=== PATIENT | male | born 1995 | race African-American/Black ===

== ENCOUNTER 2017-09-20 16:39 | Emergency (ER) | payer OTHER ==
[2017-09-20] MEDS ORDERED: OXYCODONE-ACETAMINOPHEN 5-325 MG TABLET PO ONE (16:53)
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
[2017-09-20] MEDS ORDERED: HYDROCODONE/ACETAMINOPHEN 5-325 MG 6 TAB/DSPK PO PRN (18:05)
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
[2017-09-20 18:52] VITALS: BP 110/60
== END 2017-09-20 18:30 | disposition home or self-care (01) ==
LOC: ER 16:39
DX: M54.2 Cervicalgia (principal); V87.7XXA Person injured in collision between other specified motor vehicles (traffic), initial encounter
CPT/HCPCS: 72110; 72125; 99284

== ENCOUNTER 2018-09-02 01:43 | Emergency (ER) | payer OTHER ==
[2018-09-02] MEDS ORDERED: NORMAL SALINE 1000 ML 1,000 ML IV ONE (02:13)
[2018-09-02] MEDS ORDERED: ONDANSETRON HCL INJ/PF 4 MG/2 ML SDV IV ONE (02:21)
--- NOTE | 2018-09-02 02:22 | ER Document Report ---
ED GI/ - General Chief Complaint: Nausea/Vomiting Stated Complaint: VOMITING Time Seen by Provider: 09/02/18 02:08 Notes: Patient is a 23-year-old male that comes emergency department for chief complaint of vomiting and upper abdominal pain. He also states that he vomited blood. Patient states that he initially vomited last night after eating cookout , he states he has not felt good since then, he states that during a retching episode earlier he started vomiting blood, vomited less than a cup of blood but more than tablespoon. He denies fever or chills, he reports a normal bowel movement within the past 24 hours. He denies any daily medications, denies any surgeries, smokes occasionally, denies any regular alcohol, denies any recreational drugs. TRAVEL OUTSIDE OF THE [place] IN LAST 30 DAYS: No - Related Data Allergies/Adverse Reactions: No Known Allergies Allergy (Verified 10/15/15 16:21) Past Medical History - General Information source: Patient - Social History Smoking Status: Current Some Day Smoker Frequency of alcohol use: None Drug Abuse: Marijuana Lives with: Spouse/Significant other Family History: None Renal/ Medical History: Denies: Hx Peritoneal Dialysis Surgical Hx: Negative - Immunizations Hx Diphtheria, Pertussis, Tetanus Vaccination: Yes Review of Systems - Review of Systems Constitutional: No symptoms reported EENT: No symptoms reported Cardiovascular: No symptoms reported Respiratory: No symptoms reported Gastrointestinal: See HPI Genitourinary: No symptoms reported Male Genitourinary: No symptoms reported Musculoskeletal: No symptoms reported Skin: No symptoms reported Hematologic/Lymphatic: No symptoms reported Neurological/Psychological: No symptoms reported Physical Exam - Vital signs Vitals: Temp Pulse Resp BP Pulse Ox 98.1 F 100 18 109/69 100 09/02/18 01:48 09/02/18 01:48 09/02/18 01:48 09/02/18 01:48 09/02/18 01:48 - Notes Notes: GENERAL: Alert, interacts well. No acute distress. HEAD: Normocephalic, atraumatic. EYES: Pupils equal, round, and reactive to light. Extraocular movements intact. ENT: Oral mucosa moist, tongue midline. NECK: Full range of motion. Supple. Trachea midline. LUNGS: Clear to auscultation bilaterally, no wheezes, rales, or rhonchi. No respiratory distress. HEART: Regular rate and rhythm. No murmur ABDOMEN: Generalized upper abdominal tenderness, no guarding. Non-distended. Bowel sounds present in all 4 quadrants. GENITOURINARY: Deferred EXTREMITIES: Moves all 4 extremities spontaneously. No edema, normal radial and dorsalis pedis pulses bilaterally. No cyanosis. BACK: no cervical, thoracic, lumbar midline tenderness. No saddle anesthesia, normal distal neurovascular exam. NEUROLOGICAL: Alert and oriented x3. Normal speech. [cranial nerves II through XII grossly intact]. PSYCH: Normal affect, normal mood. SKIN: Warm, dry, normal turgor. No rashes or lesions noted. Course - Re-evaluation Re-evalutation: Patient has generalized upper abdominal tenderness. No guarding. He is well- appearing. He is not tachycardic, hypotensive, or febrile. There is no blood in the hypopharynx. Because of reported retching x-rays performed does not show free air/ perforation evidence. It is unremarkable. CBC, chemistry, lipase unremarkable. On reevaluation after IV fluids and Zofran patient is much improved. Given Carafate and Pepcid, he tolerated this and felt much improved afterwards. Suspected gastritis component. Discussed recommendations for this , discussed treatment, follow-up, and return precautions in detail. Patient states satisfaction and agreement with plan. - Vital Signs Vital signs: Temp Pulse Resp BP Pulse Ox 97.8 F 91 18 105/59 L 100 09/02/18 04:14 09/02/18 04:14 09/02/18 04:14 09/02/18 04:14 09/02/18 04:14 - Laboratory Result Diagrams: 09/02/18 02:48 09/02/18 02:48 Laboratory results interpreted by me: 09/02/18 09/02/18 02:48 02:48 RBC 5.91 H Seg Neutrophils % 85.8 H Lymphocytes % 10.5 L Monocytes % 2.7 L Total Protein 8.7 H Lipase 19.6 L Discharge - Discharge Clinical Impression: Upper abdominal pain Hematemesis Qualifiers: Nausea presence: with nausea Qualified Code(s): K92.0 - Hematemesis Vomiting Qualifiers: Vomiting type: unspecified Vomiting Intractability: non-intractable Nausea presence: with nausea Qualified Code(s): R11.2 - Nausea with vomiting, unspecified Condition: Stable Disposition: HOME, SELF-CARE Additional Instructions: Your chest/abdominal x-ray and laboratory evaluations are reassuring. Continue treatment for gastritis at home, take medications as prescribed. Take Phenergan for nausea, take Carafate and Pepcid as prescribed to help treat this , you can take additional Rolaids, Tums, Maalox, etc. if needed. You can take Tylenol for pain. Avoid NSAIDs, alcohol, smoking, caffeine, spicy food. Start with clear fluids, progress to bland diet. Follow-up with primary care for additional evaluation and treatment including possible H. pylori testing. Return if you worsen including uncontrolled vomiting, vomiting blood, black stools, severe pain, fever for 100.4 or greater , or any other concerning or worsening symptoms. Prescriptions: Famotidine [Pepcid 20 mg Tablet] 20 mg PO BID #20 tablet Promethazine HCl [Phenergan 25 mg Tablet] 25 mg PO Q6H PRN #20 tablet PRN Reason: Sucralfate [Carafate 1 gm Tablet] 1 gm PO QID #20 tablet Forms: Treatment of Relative/Child
[2018-09-02 03:11] LABS: ABSOLUTE BASOPHILS # (AUTO) 0.1 10^3/uL (0.0-0.2); ABSOLUTE LYMPHOCYTES (AUTO) 0.8 10^3/uL (0.5-4.7); ABSOLUTE MONOCYTES (AUTO) 0.2 10^3/uL (0.1-1.4); ABSOLUTE NEUT (AUTO) 6.6 10^3/uL (1.7-8.2); BASOPHILS % (AUTO) 0.7 % (0-2); EOSINOPHILS % (AUTO) 0.3 % (0-6); HEMATOCRIT 49.5 % (37.9-51.0); HEMOGLOBIN 16.7 g/dL (13.5-17.0); LYMPHOCYTES % (AUTO) 10.5 % (13-45); MEAN CORPUSCULAR HEMOGLOBIN 28.3 pg (27.0-33.4); MEAN CORPUSCULAR HGB CONC 33.8 g/dL (32.0-36.0); MEAN CORPUSCULAR VOLUME 84 fl (80-97); MONOCYTES % (AUTO) 2.7 % (3-13); PLATELET COUNT 221 10^3/uL (150-450); RED BLOOD COUNT 5.91 10^6/uL (4.35-5.55); RED CELL DISTRIBUTION WIDTH 12.3 % (11.5-14.0); SEGMENTED NEUTROPHILS % (AUTO) 85.8 % (42-78); TOTAL CELLS COUNTED % (AUTO) 100 %; WHITE BLOOD COUNT 7.6 10^3/uL (4.0-10.5)
[2018-09-02 03:28] LABS: ALANINE AMINOTRANSFERASE 24 U/L (21-72); ALBUMIN 4.8 g/dL (3.5-5.0); ALKALINE PHOSPHATASE 77 U/L (38-126); ANION GAP 15 (5-19); ASPARTATE AMINO TRANSFERASE 25 U/L (17-59); BILIRUBIN,DIRECT 0.4 mg/dL (0.0-0.4); BLOOD UREA NITROGEN 12 mg/dL (7-20); CALCIUM 9.8 mg/dL (8.4-10.2); CARBON DIOXIDE 23 mmol/L (22-30); CHLORIDE 102 mmol/L (98-107); GLUCOSE 78 mg/dL (75-110); LIPASE 19.6 U/L (23-300); POTASSIUM 3.9 mmol/L (3.6-5.0); SODIUM 140.2 mmol/L (137-145); TOTAL PROTEIN 8.7 g/dL (6.3-8.2)
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
[2018-09-02] MEDS ORDERED: SUCRALFATE 1 GM TABLET PO ONE (03:48)
[2018-09-02] MEDS ORDERED: FAMOTIDINE 20 MG TABLET PO ONE (03:48)
[2018-09-02 04:15] VITALS: BP 105/59
== END 2018-09-02 04:19 | disposition home or self-care (01) ==
LOC: ER 01:43
DX: K92.0 Hematemesis (principal); R10.10 Upper abdominal pain, unspecified; F17.200 Nicotine dependence, unspecified, uncomplicated; F12.10 Cannabis abuse, uncomplicated
CPT/HCPCS: 99284; 96361; 96374; 36415; 83690; 85025; 80053; 71045; J2405; J7030